=== PATIENT | male | born 1985 | race Caucasian/White ===

== ENCOUNTER 2016-11-11 14:55 | Emergency (ER) | payer OTHER ==
[~2016-11-11] VITALS: Wt 72.6 kg
[~2016-11-11 14:55] MED LIST: AMOXICILLIN500 M2 PO; AMOXICILLIN500 MG PO; ANAPROX DS550 MG PO; CLEOCIN HCL150 MG PO; COLACE100 MG PO; HYDROCODONE BIT1 T11 PO; MEDROL DOSEPAK4 MG PO; MOTRIN400 MG; MOTRIN50 MG PO; Motrin,Rufen800 MG PO; NKHM PO; NORCO 325 MG-51 TAB PO; PEN-V500 MG PO; PENICILLIN VK500 MG PO; PERCOCET 325 MG1 TA2 PO; PERIDEX 480 ML480 ML PO; PROVENTIL0.09 MG/AC IH; TOBRADEX 0.1%-0.5 ML OPH; TRAMADOL HCL50 MG PO; TYLENOL ARTHRI650 MG PO; TYLENOL W/CODEI1 TA2 PO; ULTRAM50 MG PO; VICODIN ES 7501 TAB PO; VOLTAREN50 M1 PO; ZITHROMAX Z PA250 MG PO
[2016-11-11] MEDS ORDERED: HYDROCODONE BIT1 T11 PO (17:07)
[2016-11-11] MEDS ORDERED: Motrin,Rufen800 MG PO (17:07)
== END 2016-11-11 17:11 | disposition home or self-care (01) ==
LOC: ED 14:55
DX: S92.414A Nondisplaced fracture of proximal phalanx of right great toe, initial encounter for closed fracture (principal); F17.200 Nicotine dependence, unspecified, uncomplicated; Z88.6 Allergy status to analgesic agent; W54.1XXA Struck by dog, initial encounter; Y93.89 Activity, other specified; Y92.9 Unspecified place or not applicable; Y99.9 Unspecified external cause status

== ENCOUNTER 2018-11-18 20:36 | Emergency (ER) | payer OTHER ==
[~2018-11-18] VITALS: Ht 172.7 cm; Wt 86.2 kg
[~2018-11-18 20:36] MED LIST changes: +FLONASE ALLERG9.9 ML NAS; +ZYRTEC10 MG PO
[2018-11-18] MEDS ORDERED: AUGMENTIN 875875 MG PO (21:05)
== END 2018-11-18 21:20 | disposition home or self-care (01) ==
LOC: ED 20:36
DX: K02.9 Dental caries, unspecified (principal); Z88.5 Allergy status to narcotic agent; Z79.899 Other long term (current) drug therapy

== ENCOUNTER 2019-10-26 20:40 | Emergency (ER) | payer OTHER ==
[~2019-10-26] VITALS: Ht 172.7 cm; Wt 81.6 kg
[~2019-10-26 20:40] MED LIST changes: +AUGMENTIN 875875 MG PO
[2019-10-26] MEDS ORDERED: IBUPROFEN600 MG PO (21:30)
[2019-10-26] MEDS ORDERED: AMOXICILLIN500 M2 PO (21:30)
== END 2019-10-26 21:15 | disposition home or self-care (01) ==
LOC: ED 20:40
DX: K08.89 Other specified disorders of teeth and supporting structures (principal); Z88.5 Allergy status to narcotic agent; Z79.899 Other long term (current) drug therapy

== ENCOUNTER 2022-08-25 23:36 | Emergency (ER) | payer OTHER ==
[~2022-08-25] VITALS: Ht 172.7 cm; Wt 99.8 kg
[~2022-08-25 23:36] MED LIST changes: +IBUPROFEN600 MG PO
== END 2022-08-26 00:51 | disposition home or self-care (01) ==
LOC: ED 23:36
DX: S61.012A Laceration without foreign body of left thumb without damage to nail, initial encounter (principal); Z98.890 Other specified postprocedural states; Z88.5 Allergy status to narcotic agent; W26.0XXA Contact with knife, initial encounter; Y93.89 Activity, other specified; Y92.89 Other specified places as the place of occurrence of the external cause; Y99.8 Other external cause status

== ENCOUNTER 2022-09-20 13:22 | Emergency (ER) | payer OTHER ==
[~2022-09-20] VITALS: Ht 175.2 cm; Wt 99.8 kg
[2022-09-20] MEDS ORDERED: AMOXICILLIN500 M2 PO (14:13)
[2022-09-20] MEDS ORDERED: Motrin,Rufen800 MG PO (14:13)
== END 2022-09-20 14:24 | disposition home or self-care (01) ==
LOC: ED 13:22
DX: K08.89 Other specified disorders of teeth and supporting structures (principal); Z88.8 Allergy status to other drugs, medicaments and biological substances

== ENCOUNTER 2024-01-22 13:41 | Emergency (ER) | payer SELFPAY ==
[~2024-01-22] VITALS: Ht 172.7 cm; Wt 95.3 kg
[2024-01-22] MEDS ORDERED: AMOX-CLAV 875-1 EACH PO (14:05)
== END 2024-01-22 14:19 | disposition home or self-care (01) ==
LOC: ED 13:41
DX: J32.1 Chronic frontal sinusitis (principal); J32.0 Chronic maxillary sinusitis; Z88.5 Allergy status to narcotic agent; Z79.899 Other long term (current) drug therapy; Z79.2 Long term (current) use of antibiotics; Z98.890 Other specified postprocedural states

== ENCOUNTER 2025-08-13 14:03 | Emergency (ER) | payer OTHER ==
[~2025-08-13] VITALS: Ht 175.2 cm; Wt 90.7 kg
[~2025-08-13 14:03] MED LIST changes: +AMOX-CLAV 875-1 EACH PO
[2025-08-13 14:50] LABS: BASO # 0.1 10*3/uL (0.0-0.1); BASO % 1.1 % (0.0-1.0); EOS # 0.0 10*3/uL (0.0-0.4); EOS % 0.0 % (1.0-4.0); MEAN CELL VOLUME 88.5 fl (80.0-94.0); MEAN CORPUSCULAR HGB 30.7 pg (27.0-31.0); MEAN PLATELET VOLUME 11.2 fl (9.6-12.3); MONO # 0.8 10*3/uL (0.1-1.0); MONO % 18.3 % (3.0-9.0); NEUT # 2.4 10*3/uL (2.3-7.9); NEUT % 51.7 % (47.0-73.0); NUCLEATED RED BLOOD CELL 0.0 % (0.0-0.0); NUCLEATED RED BLOOD CELL 0.0 10*3/uL (0.0-0.0); PLATELET COUNT AUTOMATED 146 10*3/uL (130-400); RED CELL DISTRI WIDTH 11.9 % (0-14.5)
[2025-08-13 15:09] LABS: BUN 9 mg/dl (9-23)
[2025-08-13] MEDS ORDERED: ZITHROMAX250 MG PO (16:23)
[2025-08-13] MEDS ORDERED: PREDNISONE50 MG PO (16:23)
[2025-08-13] MEDS ORDERED: AZITHROMYCIN 250 MG TAB PO ONE (16:25)
[2025-08-13] MEDS ORDERED: predniSONE 20 MG TAB PO ONE (16:25)
== END 2025-08-13 16:41 | disposition home or self-care (01) ==
LOC: ED 14:03
PROVIDERS: Nurse Practitioner Family
DX: J98.4 Other disorders of lung (principal); Z98.890 Other specified postprocedural states; Z88.5 Allergy status to narcotic agent; Z20.822 Contact with and (suspected) exposure to COVID-19